=== PATIENT | female | born 1995 | race African-American/Black ===

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

== ENCOUNTER 2018-01-25 16:58 | Emergency (ER) | payer OTHER ==
[~2018-01-25] VITALS: Ht 162.6 cm; Wt 143.2 kg
[~2018-01-25 16:58] MED LIST: BACTRIM DS 8001 TAB PO
[2018-01-25 17:11] VITALS: BP 120/78; TEMP 97.5
[2018-01-25 17:55] LABS: BASO # 0.1 (0.0-0.2); BASO % 0.4 % (0.0-2.0); EOS # 0.1 (0.0-0.7); EOS % 1.2 % (0-4.0); GRAN # 7.7 (1.4-6.5); GRAN % 64.6 % (42.2-75.2); HEMATOCRIT 37.1 % (35.0-45.0); HEMOGLOBIN 11.3 g/dl (12.0-15.0); LYMPH # 3.2 (1.2-3.4); LYMPH % 26.7 % (20.0-51.0); MEAN CELL VOLUME 77 fl (80.0-95.0); MEAN CORPUSCULAR HEMOGLOBIN 23 pg (26.0-32.0); MEAN CORPUSCULAR HGB CONC 31 g/dl (33.0-37.0); MEAN PLATELET VOLUME 10.8 fl (7.4-10.4); MONO # 0.7 (0.1-0.6); PLATELET COUNT 405 K/mm3 (130-400); RED BLOOD COUNT 4.82 M/mm3 (4.10-5.30); REDCELL DISTRIBUTION WIDTH-CV 16.9 % (11.5-14.5)
[2018-01-25] MEDS ORDERED: ELAVIL100 MG PO (18:07)
[2018-01-25] MEDS ORDERED: KLONOPIN 0.5MG0.5 MG PO (18:08)
[2018-01-25] MEDS ORDERED: TOPROL XL 50MG50 MG PO (18:08)
[2018-01-25 18:15] LABS: COLLECTION METHOD CLEAN CATCH
[2018-01-25 18:24] LABS: PH 6 (5-8); URINE APPEARANCE Clear; URINE BACTERIA None Seen /hpf; URINE BILIRUBIN Negative (NEGATIVE); URINE BLOOD 3+ (NEGATIVE); URINE COLOR Straw; URINE GLUCOSE Negative (NEGATIVE); URINE KETONE Negative (NEGATIVE); URINE LEUKOCYTE ESTERASE 2+ (NEGATIVE); URINE NITRATE Negative (NEGATIVE); URINE PROTEIN(semi-quant) Negative (NEGATIVE); URINE RBC 20-50 /hpf; URINE UROBILINOGEN Negative (NEGATIVE)
[2018-01-25] MEDS ORDERED: CEPHALEXIN500 M1 PO (19:01)
[2018-01-25 19:14] VITALS: PULSE 111
== END 2018-01-25 19:11 | disposition home or self-care (01) ==
LOC: COL.ER 16:58
PROVIDERS: Emergency Medicine
DX: O20.0 Threatened abortion (principal); O99.351 Diseases of the nervous system complicating pregnancy, first trimester; O16.1 Unspecified maternal hypertension, first trimester; O23.41 Unspecified infection of urinary tract in pregnancy, first trimester; F41.9 Anxiety disorder, unspecified; Z3A.01 Less than 8 weeks gestation of pregnancy

== ENCOUNTER 2018-01-26 20:06 | Emergency (ER) | payer OTHER ==
[~2018-01-26] VITALS: Ht 162.6 cm; Wt 159.1 kg
[~2018-01-26 20:06] MED LIST changes: +CEPHALEXIN500 M1 PO; +ELAVIL100 MG PO; +KLONOPIN 0.5MG0.5 MG PO; +TOPROL XL 50MG50 MG PO
[2018-01-26 20:09] VITALS: TEMP 97.9
[2018-01-26 21:01] LABS: BASO # 0.1 (0.0-0.2); BASO % 0.5 % (0.0-2.0); EOS # 0.2 (0.0-0.7); EOS % 1.1 % (0-4.0); GRAN # 8.1 (1.4-6.5); GRAN % 57.5 % (42.2-75.2); HEMATOCRIT 35.2 % (35.0-45.0); HEMOGLOBIN 11.1 g/dl (12.0-15.0); LYMPH # 4.7 (1.2-3.4); LYMPH % 33.1 % (20.0-51.0); MEAN CELL VOLUME 76 fl (80.0-95.0); MEAN CORPUSCULAR HEMOGLOBIN 24 pg (26.0-32.0); MEAN CORPUSCULAR HGB CONC 32 g/dl (33.0-37.0); MEAN PLATELET VOLUME 10.9 fl (7.4-10.4); MONO # 0.9 (0.1-0.6); MONO % 6.7 % (1.7-9.3); PLATELET COUNT 408 K/mm3 (130-400); RED BLOOD COUNT 4.63 M/mm3 (4.10-5.30); REDCELL DISTRIBUTION WIDTH-CV 17.2 % (11.5-14.5)
[2018-01-26 22:01] VITALS: BP 135/81; PULSE 115
== END 2018-01-26 22:02 | disposition home or self-care (01) ==
LOC: COL.ER 20:06
PROVIDERS: Physician Assistant
DX: O20.0 Threatened abortion (principal); O99.341 Other mental disorders complicating pregnancy, first trimester; F41.9 Anxiety disorder, unspecified; Z3A.00 Weeks of gestation of pregnancy not specified; Z87.891 Personal history of nicotine dependence; Z90.49 Acquired absence of other specified parts of digestive tract; Z90.89 Acquired absence of other organs; Z96.22 Myringotomy tube(s) status

== ENCOUNTER 2018-01-30 22:08 | Emergency (ER) | payer OTHER ==
[~2018-01-30] VITALS: Ht 162.6 cm; Wt 143.2 kg
[2018-01-30 22:13] VITALS: TEMP 99.4
[2018-01-30] MEDS ORDERED: TOPROL XL 25MG25 MG PO (23:01)
[2018-01-30 23:05] LABS: BASO # 0.1 (0.0-0.2); BASO % 0.4 % (0.0-2.0); EOS # 0.2 (0.0-0.7); EOS % 1.4 % (0-4.0); GRAN % 71.1 % (42.2-75.2); HEMOGLOBIN 10.9 g/dl (12.0-15.0); LYMPH # 3.5 (1.2-3.4); LYMPH % 22.5 % (20.0-51.0); MEAN CELL VOLUME 75 fl (80.0-95.0); MEAN CORPUSCULAR HEMOGLOBIN 24 pg (26.0-32.0); MEAN CORPUSCULAR HGB CONC 31 g/dl (33.0-37.0); MONO # 0.6 (0.1-0.6); MONO % 3.9 % (1.7-9.3); PLATELET COUNT 359 K/mm3 (130-400); REDCELL DISTRIBUTION WIDTH-CV 17.1 % (11.5-14.5)
[2018-01-30 23:07] LABS: HEMATOCRIT 34.7 % (35.0-45.0)
[2018-01-30 23:54] VITALS: BP 117/86
[2018-01-31 02:11] VITALS: PULSE 105
== END 2018-01-31 01:05 | disposition home or self-care (01) ==
LOC: COL.ER 22:08
PROVIDERS: Nurse Practitioner
DX: O20.0 Threatened abortion (principal); Z3A.01 Less than 8 weeks gestation of pregnancy